=== PATIENT | female | born 1970 | race Caucasian/White ===

== ENCOUNTER 2023-11-28 13:17 | Emergency (ER) | payer OTHER ==
[~2023-11-28] VITALS: Ht 162.6 cm; Wt 75.0 kg
[2023-11-28] MEDS ORDERED: BACTRIM DS1 TAB PO (13:32)
[2023-11-28] MEDS ORDERED: KEFLEX500 MG PO (13:32)
[2023-11-28] MEDS ORDERED: MUPIROCIN2 % (13:33)
[2023-11-28 13:39] VITALS: BP 145/95
== END 2023-11-28 13:38 | disposition home or self-care (01) | DRG 156 ==
LOC: ED 13:17
DX: J34.0 Abscess, furuncle and carbuncle of nose (principal)